=== PATIENT | male | born 1985 | race Caucasian/White ===

== ENCOUNTER 2021-08-22 17:09 | Emergency (ER) | payer OTHER, SELFPAY ==
[2021-08-22 17:13] VITALS: BP 145/86; PULSE 111; RESP 16; TEMP 36.4; O2SAT 100; BMI 28.6
[2021-08-22] MEDS: Diphth,Pertus(ACell),Tet Adult 0.5 ML SYRINGE IM (17:33)
[2021-08-22] MEDS: Lidocaine HCl 1 % MPF 5 ML VIAL SUBCUT (17:33)
--- NOTE | 2021-08-22 17:33 | ED.WOUNDLAC ---
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 Tetanus unknown. Reports associated numbness. Denies injury to the area, fever, decreased ROM Onset (ago): hour(s) Related Data Previous Rx's Medication Instructions Recorded acetaminophen 300 mg-codeine 30 mg 1 tab PO Q6H PRN pain, severe 3 08/22/21 tablet days #7 tabs ibuprofen 800 mg tablet 800 mg PO Q8H PRN pain #14 tabs 08/22/21 Allergies Allergy/AdvReac Type Severity Reaction Status Date / Time No Known Allergies Allergy Verified 08/22/21 17:16 Review of Systems Review of Systems: Constitutional: No Fever, No Chills ENT/Mouth: No Ear Pain, No Nasal Congestion, No sore throat, No Rhinorrhea, No Swallowing Difficulty Cardiovascular: No Chest Pain, No SOB Respiratory: No Cough, No Sputum Gastrointestinal: No Nausea, No Vomiting, No Diarrhea, No Constipation, No Abdominal pain Genitourinary: No Dysuria, No Flank Pain Musculoskeletal: No joint pain, No Myalgias, No Joint Swelling Skin: + laceration, No rash Neuro: No Weakness, + Numbness, No Paresthesias Yes all other systems are reviewed and are negative PMFSH Past Medical History Attestation statement: The following information was validated with the patient. Physical Exam Vital Signs: Vital Signs: Last Vital Signs Temp 97.6 F 08/22/21 17:13 Pulse 111 H 08/22/21 17:13 Resp 16 08/22/21 17:13 BP 145/86 H 08/22/21 17:13 Pulse Ox 100 08/22/21 17:13 O2 Del Method 08/22/21 17:13 BMI result Body Mass Index 28.6 Const: General: cooperative, healthy appearing, no acute distress, alert and awake Orientation/consciousness: patient oriented x3 Limitations: no limitations HEENT: Head: Yes normal to inspection and Yes atraumatic Ears: hearing grossly normal bilaterally General nose exam: Normal external nose present Face and sinus: Yes normal facial exam Eyes: General: appearance normal, both eyes and all related structures EOM: EOMs intact bilaterally Neck: Neck: Yes normal visual inspection and Yes no meningeal signs Resp: Effort & Inspection: normal respiratory effort and no respiratory distress Cardio: Rate: regular rate Heart sounds: S1 normal heart sound present and S2 normal heart sound present Peripheral pulses: radial pulses present Skin: Other: +3cm deep laceration noted to left distal index finger radial aspect. No nail involvement. Slight decreased sensation to distal ulnar aspect of index finger. Full range of motion to finger and digits intact. Pulses intact. 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 On exam tachycardic likely from pain, NAD/nontoxic appearing, physical exam as above. No appreciable tendon/ligamental injury. Low suspicion for fracture. Will repair wound & update tetanus Differential Diagnosis Differential diagnosis: Likely laceration Medical Records Attestation: I reviewed the patient's medical records. Lab Data Attestation: I reviewed the patient's lab results. Procedures Laceration Laceration 1: Site: hand Side (If applicable): left Size (cm): 3 Description: irregular Depth: simple, single layer Local Anesthetic: lidocaine 1% and other anesthetic (Digital block) Amount of anesthesia used (mL): 4 Pre-repair: wound explored, irrigated extensively and deep structures intact Skin layer closed with: nylon Size (cm): 4-0 Number of sutures: 6 Technique: simple, interrupted Discharge Plan Discharge Clinical Impression: Finger laceration Patient Disposition: Home, Self-Care Instructions: Finger Laceration (ED) Additional Instructions: please to any emergency department or urgent care in 7-10 days for suture removal keep dry and clean apply bacitracian or neosporin at home Tylenol #3 is an opiate pain medication take when pain is severe and with food. Do not drive or drink alcohol while taking in addition take ibuprofen if area looks infected return to ED Prescriptions: New acetaminophen-codeine 300-30 mg tablet 1 tab PO Q6H PRN (Reason: pain, severe) 3 Days Qty: 7 0RF ibuprofen 800 mg tablet 800 mg PO Q8H PRN (Reason: pain) Qty: 14 0RF Referrals: ED Physician,Generic [Emergency Provider] - 1 week (7-10 days for suture removal)
== END 2021-08-22 18:17 | disposition home or self-care (01) ==
PROVIDERS: Emergency Provider Internal Medicine
DX: S61.211A Laceration without foreign body of left index finger without damage to nail, initial encounter (principal); W26.9XXA Contact with unspecified sharp object(s), initial encounter; Y93.9 Activity, unspecified; Y92.9 Unspecified place or not applicable; Y99.9 Unspecified external cause status
CPT/HCPCS: 12002; 12042; 90471; 90715; 96372; 99282; 99284